=== PATIENT | female | born 1960 | race Caucasian/White ===

== ENCOUNTER 2017-03-29 06:59 | Day surgery (SDC) | payer OTHER ==
[2017-03-27 09:14] VITALS: BMI 24.5
[2017-03-29] MEDS ORDERED: DEXAMETHASONE SOD PHOSPHATE/PF 10 MG/ML SDV ONE (08:33)
[2017-03-29] MEDS ORDERED: MIDAZOLAM HCL 2 MG/2 ML SINGLE DOSE VIAL ONE (08:34)
[2017-03-29] MEDS ORDERED: ROPIVACAINE HCL 0.5% 30ML VIAL ONE (08:34)
[2017-03-29] MEDS ORDERED: EPINEPHrine 1:1,000 1 MG/1 ML - 30ML VIAL (INJECTION) ONE (08:39)
[2017-03-29] MEDS ORDERED: BUPIVACAINE HCL/PF 2.5 MG/ML - 30 ML VIAL IJ ONE (09:22)
[2017-03-29] MEDS ORDERED: SCOPOLAMINE HYDROBROMIDE 1 PATCH PATCH.TD72 ONE (09:42)
[2017-03-29] MEDS ORDERED: ONDANSETRON 4 MG/2 ML VIAL ONE ×2 (09:44→11:08)
[2017-03-29] MEDS ORDERED: DEXAMETHASONE SOD PHOSPHATE 4 MG/1 ML VIAL ONE ×2 (09:44→11:08)
[2017-03-29] MEDS ORDERED: oxyCODONE HCL 5 MG TABLET PO PRN ×2 (09:58)
[2017-03-29] MEDS ORDERED: ONDANSETRON 4 MG/2 ML VIAL IVPUSH PRN (09:58)
[2017-03-29] MEDS ORDERED: LACTATED RINGERS SOLUTION 1,000 ML IV SCH (10:00)
[2017-03-29] MEDS ORDERED: KETAMINE HCL 200 MG/20 ML VIAL ONE (10:00)
[2017-03-29] MEDS ORDERED: PROPOFOL 20 ML ONE ×2 (10:30)
[2017-03-29] MEDS ORDERED: KETOROLAC TROMETHAMINE 30 MG/1 ML VIAL ONE (11:08)
[2017-03-29] MEDS ORDERED: ceFAZolin SODIUM 1 GM VIAL ONE (11:08)
[2017-03-29 12:39] VITALS: TEMP 97.9
--- NOTE | 2017-03-29 12:46 | OP ---
DATE OF OPERATION: 03/29/2017 PREOPERATIVE DIAGNOSIS: Left shoulder rotator cuff tear. POSTOPERATIVE DIAGNOSIS: Left shoulder rotator cuff tear. PROCEDURE: Left shoulder arthroscopy with rotator cuff repair. SURGEON: Chadwick Locke MD FUNDRAISING COORDINATOR: Jose Cruz Kerr PA-C. The skillful assistance was necessary for the safe and timely performance of this procedure. Mr. Kerr was able to provide limb positioning assistance, drive the camera, as well as the assistance in the passing of sutures and insertion of orthopedic fixation implements while the surgeon was manipulating complex instruments on the back table. ANESTHESIA: Regional plus general. POSTOPERATIVE CONDITION: Stable. COMPLICATIONS: None. INDICATIONS: This is a pleasant woman who had suffered a proximal humerus fracture. She was having increasing discomfort and limited strength in her rehabilitation. An MRI demonstrated a rotator cuff tear. Given this finding, treatment options were discussed including nonoperative versus operative management. Operative risks were reviewed in detail including bleeding, infection, neurovascular injury, need for further surgery, postoperative pain and stiffness, and failure the rotator cuff to heal or retear. We discussed medical risks such as heart attack, stroke, DVT, PE, and . We discussed the recovery limitations and the need for physical therapy during recovery. We reviewed perioperative DVT and antibiotic prophylaxis. I addressed all of the patient's questions. She voiced understanding and elected to proceed. PROCEDURE: The patient was brought to the operating room after administration of regional block in the preoperative holding area. She was placed in the beach chair position, carefully padding all the bony prominences. The left upper extremity was then examined demonstrating full range of motion against stability. It was then prepped and draped in the usual sterile fashion. Her preoperative dose of antibiotics was given and the usual time-out procedure was performed. At this point, the bony landmarks were marked out and then a posterior portal was established. The arthroscope was passed into the glenohumeral joint. Examination of the joint itself demonstrated no significant articular cartilage lesions. Passing the arthroscope anteriorly demonstrated an intact subscapularis. The scope was passed superiorly and the biceps was seen to be intact with minimal tendinosis. The superior labrum was seen to be slightly frayed but intact. The arthroscope was now passed back along the supraspinatus, which did have an articular-sided tear present. The initial depth of the tear was difficult to appreciate due to the amount of fraying present. The arthroscope was now passed back and the infraspinatus was seen to be intact. An anterior portal was now established under spinal needle localization. A shaver was passed in and the superior labrum was debrided. There was also debridement of some synovitis noted in the anterior and posterior portions of the joints in order for better visualization. The arthroscope was now passed back to the supraspinatus. Here, utilizing a shaver, this was debrided down of any non-viable tissue. This demonstrated that there was a 90% thickness estimated tear through the supraspinatus with only a thin veil of tissue noted on the bursal side. A spinal needle was used to pass a Prolene suture to liyah the spot for examination on the bursal surface. At this point, the arthroscope was withdrawn from the joint and passed into the subacromial space. Here, some bursitis was present. Utilizing the shaver as well as electrocautery, the bursa was debrided and a subacromial decompression was performed. Within some bursal tissue anteriorly, the Prolene suture was noted and no full-thickness tear was seen. The decision here was made now to perform a PASTA type repair. The arthroscope was now passed back into the glenohumeral joint. A spinal needle was used to localize a portal for placing an anchor in the middle of the tear. An incision was made and the trocar was now inserted and percutaneous entry through the rotator cuff and into the middle of the tear on the humerus. It should be noted that prior to this, the shaver was used to create a better bleeding bone where the tear was. The anchor was then drilled and then inserted. Excellent purchase was achieved. Utilizing a spinal needle as well as a second Prolene suture, horizontal simple suture pattern was created. Having passed all 4 limbs through separate areas at this point, the arthroscope was withdrawn back into the subacromial space. Here, the anterior simple suture and posterior simple suture were individually tied. In order to provide compression across the rotator cuff, the decision was made to perform a dual row repair. Electrocautery was used to create an area of bare bone on the lateral aspect of the humerus. A punch was used to create a trough and a SwiveLock anchor was loaded with the anterior and posterior sutures. The SwiveLock anchor was now inserted into place creating a double row construct. The extra sutures were now cut. The shoulder was passed through a range of motion and the repair was seen to be stable. The portal was now sutured using 3-0 nylon. Sterile dressings were placed. The patient was transferred to the recovery room in stable condition. CHADWICK LOCKE M.D. [id number]
[2017-03-29 13:17] VITALS: BP 122/73; PULSE 68
== END 2017-03-29 13:18 | disposition home or self-care (01) ==
LOC: FASU 06:59
PROVIDERS: ATTEND Orthopaedic Surgery Sports Medicine
PROC: 0RBK4ZZ Excision of Left Shoulder Joint, Percutaneous Endoscopic Approach (ICD-10-PCS; 2017-03-29)
PROC: 0LB24ZZ Excision of Left Shoulder Tendon, Percutaneous Endoscopic Approach (ICD-10-PCS; principal; 2017-03-29 09:38)
PROC: 0RNK4ZZ Release Left Shoulder Joint, Percutaneous Endoscopic Approach (ICD-10-PCS; 2017-03-29 09:38)
DX: M75.122 Complete rotator cuff tear or rupture of left shoulder, not specified as traumatic (principal); M65.812 Other synovitis and tenosynovitis, left shoulder
CPT/HCPCS: 94760